=== PATIENT | male | born 1965 | race Caucasian/White ===

== ENCOUNTER 2019-10-14 17:29 | Emergency (ER) | payer BC ==
[~2019-10-14] VITALS: Ht 185.4 cm; Wt 104.3 kg
[~2019-10-14 17:29] MED LIST: NOHOMEMEDICATIONS; PRILOSEC 20 MG20 MG PO
[2019-10-14] MEDS ORDERED: CELEXA 10 MG TA10 M1 PO (17:38)
[2019-10-14] MEDS ORDERED: BUPROPION XL300 MG PO (17:39)
[2019-10-14] MEDS ORDERED: VASCEPA1 GM PO (17:39)
[2019-10-14 17:49] LABS: ABSOLUTE BASOPHILS 0.1 thou/uL (0.0-0.2); ABSOLUTE LYMPHOCYTES 1.9 thou/uL (0.8-5.3); ABSOLUTE MONOCYTES 0.7 thou/uL (0.0-1.2); BASOPHILS 1.3 %; EOSINOPHILS 0.2 %; HEMATOCRIT 45.7 % (42.0-52.0); HEMOGLOBIN 16.1 gm/dL (14.0-18.0); LYMPHOCYTES 24.5 %; MCHC 35.3 g/dL (28.0-37.0); MCV 84.9 fL (80.0-100.0); MONOCYTES 8.6 %; MPV 6.9 fl. (7.2-11.1); NUCLEATED RBCS 0 /100WBC; PLATELET COUNT* 280 thou/uL (150-400); POLYS 65.4 %; RBC 5.38 mil/uL (4.50-6.00); RDW-CV 13.2 % (10.5-14.5); WBC 7.7 thou/uL (4.0-11.0)
[2019-10-14 17:58] LABS: CALCIUM 9.2 mg/dL (8.5-10.1); POTASSIUM 4.2 mmol/L (3.5-5.1)
[2019-10-14 17:59] LABS: APTT 27.8 Seconds (25.0-31.3); PROTIME 10.1 Seconds (9.20-11.50)
[2019-10-14 18:10] LABS: ALBUMIN 4.1 g/dL (3.4-5.0); CK-MB MASS 1.2 ng/mL (<0.5-3.6); MAGNESIUM 2.3 mg/dL (1.8-2.4); TOTAL BILIRUBIN 0.3 mg/dL (<0.1-1.0); TOTAL PROTEIN 7.9 g/dL (6.4-8.2)
[2019-10-14 18:26] VITALS: BP 155/95
--- NOTE | 2019-10-15 12:58 | EKG ---
[place] [address] ELECTROCARDIOGRAM REPORT Name: TRELL LUKE Room: [facility]#: [id number] Admission: 10/14/19 Attend Phys: Discharge: 10/14/19 Date of : 67 Date of Service: 10/14/19 173 Report #: [id number] THIS REPORT FOR: //name// [facility] ED Test Date: 2019-10-14 Test Time: 17:32:22 Pat Name: TRELL LUKE Department: Room: Gender: Bookkeepers Supervisor: : [id number] Requested By: Ricardo Johnson Order Number: [id number] MD: Alex Abbasi Measurements Intervals [place] Rate: 81 P: 76 PA: 144 QRS: 38 QRSD: 89 T: 42 QT: 360 QTc: 418 Interpretive Statements Sinus rhythm Baseline wander in lead(s) II,III,aVR,aVL,aVF,V5 Compared to ECG 08/23/2014 23:42:17 No significant changes Electronically Signed On 10-15-2019 12:56:40 CDT by Alex Abbasi [email or web address] <ELECTRONICALLY SIGNED> By: Alex Abbasi MD, FACC 10/15/19 1256 1732 1732 Alex Abbasi MD, [facility] /EPI
== END 2019-10-14 18:27 | disposition home or self-care (01) ==
LOC: M.ERS 17:29
PROVIDERS: Family Medicine
DX: F41.9 Anxiety disorder, unspecified (principal)